=== PATIENT | female | born 1950 | race Asian ===

== ENCOUNTER → 2018-05-21 15:42 | Outpatient (CLI) | payer MEDICARE, SELFPAY ==
[2018-05-21 16:11] LABS: Add Manual Diff / Slide Review NO; Basophils Percent Auto 0.4 % (0-2); Eosinophils Percent Auto 5.3 % (2-4); Hemoglobin 14.7 g/dL (12.0-16.0); Lymphocytes Percent Auto 26.5 % (25-40); Mean Corpuscular HGB Conc 34.2 % (30-36); Mean Corpuscular Hemoglobin 31.6 PG (26-34); Mean Corpuscular Volume 92.3 fL (80-100); Monocytes Percent Auto 6.9 % (3-14); Neutrophils Absolute Auto 3300 /uL (3000-5900); Neutrophils Percent Auto 60.9 % (50-75); Platelet Count 248 X10^3/uL (150-400); Red Blood Cell Count 4.66 X10^6/uL (4.0-5.2); Red Cell Distribution Width 14.1 % (11.6-14.8); White Blood Cell Count 5.4 X10^3/uL (4.5-11.0)
[2018-05-21 17:43] LABS: Alanine Aminotransferase 28 IU/L (9-52); Albumin 4.7 g/dL (3.5-5.0); Albumin Globulin Ratio 1.4 (1.0-2.8); Alkaline Phosphatase 98 U/L (38-126); Aspartate Aminotransferase 37 IU/L (14-36); BUN Creatinine Ratio 31.4 (6-22); Bilirubin Total 0.5 mg/dL (0.2-1.3); Blood Urea Nitrogen 22 mg/dL (7-17); Calcium 9.8 mg/dL (8.4-10.2); Carbon Dioxide 28 mmol/L (22-32); Chloride 103 mmol/L (98-107); Estimated Glomerular Filt Rate > 60.0 mL/min (>60); Globulin 3.4 g/dL (1.7-4.1); Glucose 128 mg/dL (80-110); HEMOLYSIS 43 (0-50); Potassium 4.4 mmol/L (3.4-5.1); Sodium 144 mmol/L (137-145); Total Protein 8.1 g/dL (6.3-8.2)
--- NOTE | 2018-06-25 15:19 | ONC.NAV ---
Description: Survivorship Care Plan Summary Activity: Sent both pt and primary care provider copies.
== END ==
PROVIDERS: PCP Family Medicine
DX: C50.911 Malignant neoplasm of unspecified site of right female breast (principal)
CPT/HCPCS: 36415; 80053; 85025

== ENCOUNTER 2018-05-29 14:50 | Oncology outpatient (ONC) | payer MEDICARE, SELFPAY ==
[2018-05-29 15:19] VITALS: BP 137/85
--- NOTE | 2018-05-29 15:35 | ONC.PN ---
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 Bilateral mastectomy in December 2013 for a 2.9 cm primary tumor. She had 1 sentinel lymph node that was negative for metastatic disease. 2. Adjuvant chemotherapy with carboplatin and Taxol for 4 cycles followed by 4 cycles of Adriamycin and Cytoxan finishing in July 2014. 3. Adjuvant radiation. 4. Femara beginning in October 2014. Interval history: The patient is a 68-year-old woman who returns today for follow-up of a history of squamous cell cancer of the breast. She is feeling well today and has no specific complaints. She has been tolerating her hormonal therapy without too much difficulty. She has had some stiffness in her fingers occasionally. It does not seem to be interfering in her activities at all. She denies any hot flashes. She has not noted any changes on the chest wall or the axilla. She denies any new aches or pains. No fevers chills or sweats. No shortness of breath or cough. No GI complaints. The Femara as her only prescription medication. She does take some vitamins. Other than the breast cancer, she really has no significant past medical history. Social history: She does not smoke or drink alcohol. She is . Her family history is notable for an aunt with breast cancer. She also had a cousin with breast cancer. Home Medications and Allergies Home Medications Medication Instructions Recorded Confirmed Type CALCIUM CARBONATE (#CALCIUM) 600 mg PO QDAY #2 06/27/11 05/29/18 History cholecalciferol (vitamin D3) 1,000 iu PO QDAY #0 06/27/11 05/29/18 History [Vitamin D3] [CO-Q-10] 1 cap PO Q DAY #0 11/28/16 05/29/18 History letrozole [Femara] 2.5 mg PO QDAY #90 tab 07/10/17 05/29/18 Rx Allergies Allergy/AdvReac Type Severity Reaction Status Date / Time No Known Drug Allergies Allergy Verified 05/29/18 15:23 Exam Vital signs: Last Vital Signs BP 137/85 05/29/18 15:19 - Constitutional positive no acute distress, positive average body habitus - Routine HEENT Exam Head: Present: normocephalic, atraumatic Eye: Present: EOMI, PERRL. Absent: conjunctival icterus, scleral injection ENT: Present: mucous membranes moist, oropharynx clear - Routine Neck Exam Present: supple. Absent: lymphadenopathy, thyromegaly - Routine Chest/Breast/Axilla Exam Chest wall exam standard: Absent: tenderness, mass Breast: Present: right mastectomy, left mastectomy Axillae: Absent: lymphadenopathy - Routine Respiratory Exam Present: Clear to auscultation bilaterally. Absent: rales, wheezes - Routine Cardiovascular Exam Present: RRR, S1, S2. Absent: murmur - Routine Abdominal Exam Present: soft, normoactive bowel sounds. Absent: tenderness, organomegaly, mass - Routine Extremities Exam Absent: cyanosis, clubbing, edema - Routine Back/Spine Exam Back/Spine: Present: full ROM. Absent: paraspinal tenderness, vertebral tenderness - Routine Skin Exam Present: intact. Absent: petechiae, rash - Routine Neurological Exam Present: alert, oriented X3 - Routine Psychiatric Exam Present: normal affect, normal thought process Results - Imaging Additional studies: Procedures Bilateral simple mastectomy (12/30/13) Excision of axillary lymph node (12/30/13) Incision with removal of foreign body or device from skin and subcutaneous tissue (08/11/14) Insertion of totally implantable vascular access device [VAD] (12/30/13) Assessment and Plan (1) Squamous cell carcinoma of right breast Onset Date: 04/08/15 Problem details: 68-year-old woman with a history of a squamous cell carcinoma of the breast. She is now almost 4 and half years out from her diagnosis in about 3 and half years into her hormone treatment. She has no evidence of recurrence and is doing well. She will return to clinic in about 6 months for follow-up. She will be due for a DEXA scan at that time. Current visit: No Status: None
== END 2018-05-30 12:00 ==
PROVIDERS: PCP Family Medicine
DX: C50.911 Malignant neoplasm of unspecified site of right female breast (principal); Z17.0 Estrogen receptor positive status [ER+]; Z79.811 Long term (current) use of aromatase inhibitors; Z85.3 Personal history of malignant neoplasm of breast
CPT/HCPCS: 99215

== ENCOUNTER → 2018-12-02 08:42 | Outpatient (CLI) | payer MEDICARE, SELFPAY ==
[2018-12-02 09:58] LABS: Add Manual Diff / Slide Review NO; Basophils Absolute Auto 0 /uL (0-100); Basophils Percent Auto 1.1 % (0-2); Eosinophils Absolute Auto 100 /uL (0-450); Eosinophils Percent Auto 3.1 % (2-4); Hematocrit 43.2 % (36-46); Hemoglobin 14.4 g/dL (12.0-16.0); Lymphocytes Absolute Auto 1500 /uL (1100-4500); Lymphocytes Percent Auto 38.6 % (25-40); Mean Corpuscular HGB Conc 33.3 % (30-36); Mean Corpuscular Hemoglobin 30.3 PG (26-34); Mean Corpuscular Volume 90.9 fL (80-100); Monocytes Absolute Auto 400 /uL (0-900); Monocytes Percent Auto 9.6 % (3-14); Neutrophils Absolute Auto 1900 /uL (1500-7000); Neutrophils Percent Auto 47.6 % (50-75); Platelet Count 255 X10^3/uL (150-400); Red Blood Cell Count 4.75 X10^6/uL (4.0-5.2)
[2018-12-02 10:08] LABS: Alanine Aminotransferase 24 IU/L (9-52); Albumin 4.5 g/dL (3.5-5.0); Albumin Globulin Ratio 1.3 (1.0-2.8); Alkaline Phosphatase 78 U/L (38-126); Aspartate Aminotransferase 27 IU/L (14-36); BUN Creatinine Ratio 27.1 (6-22); Bilirubin Total 0.4 mg/dL (0.2-1.3); Blood Urea Nitrogen 19 mg/dL (7-17); Calcium 9.4 mg/dL (8.4-10.2); Carbon Dioxide 25 mmol/L (22-32); Chloride 104 mmol/L (98-107); Estimated Glomerular Filt Rate > 60.0 mL/min (>60); Globulin 3.6 g/dL (1.7-4.1); Glucose 100 mg/dL (80-110); HEMOLYSIS < 15 (0-50); Potassium 3.9 mmol/L (3.4-5.1); Sodium 140 mmol/L (137-145); Total Protein 8.1 g/dL (6.3-8.2)
== END ==
PROVIDERS: PCP Family Medicine; Visit Provider Specialist
DX: M85.851 Other specified disorders of bone density and structure, right thigh (principal); Z78.0 Asymptomatic menopausal state; C44.521 Squamous cell carcinoma of skin of breast; Z82.62 Family history of osteoporosis
CPT/HCPCS: 36415; 77080; 80053; 85025

== ENCOUNTER → 2020-12-09 13:42 | Outpatient (CLI) | payer MEDICARE, OTHER, SELFPAY | PROVIDERS: PCP Family Medicine; Referring Provider Internal Medicine Hematology & Oncology; Visit Provider Internal Medicine Hematology & Oncology | DX: M85.862 Other specified disorders of bone density and structure, left lower leg (principal); M85.861 Other specified disorders of bone density and structure, right lower leg; Z78.0 Asymptomatic menopausal state | CPT/HCPCS: 77080 ==

== ENCOUNTER → 2022-12-26 12:01 | Outpatient (CLI) | payer MEDICARE, OTHER, SELFPAY ==
--- NOTE | 2022-12-26 12:15 | DI.DEXA.S_ITS ---
C Bone Density Report Name: JOCE CARRILLO Age: 72 Sex: Female Ethnicity: Date of : 1950 Indication: osteopenia; Referring Provider: VIRAL BARNEY Study: Bone densitometry was performed. Exam Date: December 26, 2022 Accession number: [id number] Bone Density: Region BMD T-score Z-score Classification AP Spine(L1-L4) 0.903 -1.3 1.0 Osteopenia Femoral Neck (Left) 0.639 -1.9 0.1 Osteopenia Total Hip (Left) 0.736 -1.7 0.0 Osteopenia Femoral Neck (Right) 0.609 -2.2 -0.2 Osteopenia Total Hip (Right) 0.724 -1.8 -0.1 Osteopenia Total Hip Mean 0.730 -1.8 -0.1 Osteopenia Total Forearm (Left) 0.506 -1.4 0.9 Osteopenia 1/3 Forearm (Left) 0.563 -2.2 0.1 Osteopenia UD Forearm (Left) 0.405 -0.7 1.0 Normal World Health Organization criteria for BMD impression classify patients as: Normal (T-score at or above -1.0), Osteopenia (T-score between -1.0 and -2.5), or Osteoporosis (T-score at or below -2.5). 10-year Fracture Risk(1): Major Osteoporotic Fracture 7.5% Hip Fracture 1.8% Reported Risk Factors: [place] (), Neck BMD=0.609, BMI=23.8 (1) FRAX(R) Version 3.08. Fracture probability calculated for an untreated patient. Fracture probability may be lower if the patient has received treatment. Previous Exams: -- Region Exam Age BMD T-score BMD Change BMD Change Date g/cm2 vs Baseline vs Previous -- AP Spine (L1-L4) 12/26/2022 72 0.903 -1.3 -0.088 (-8.9%)# -0.088 (-8.9%)# 12/09/2020 70 0.991 -0.5 Total Hip(Left) 12/26/2022 72 0.736 -1.7 -0.030 (-3.9%)# -0.030 (-3.9%)# 12/09/2020 70 0.766 -1.4 Total Hip(Right) 12/26/2022 72 0.724 -1.8 -0.023 (-3.1%)# -0.023 (-3.1%)# 12/09/2020 70 0.746 -1.6 -- *Denotes significance at 95% confidence level, LSC for AP Spine = 0.022 g/cm2, LSC for Total Hip = 0.027 g/cm2 # Denotes dissimilar scan types or analysis methods Impression: The patient has low bone mass, based on the Right Femoral Neck T-score. The patient has an estimated ten-year risk of hip fracture of 1.8% and an estimated ten-year risk of major fracture of 7.5%, based on the WHO FRAX algorithm. No significant bone loss was observed. Discussion: BONE DENSITY IS LOW AT ONE OR MORE SKELETAL SITES. This patient's lowest T-score is low at one or more skeletal sites. It meets the World Health Organization's (WHO) criteria for ?low bone mass? (T-score between -1.0 and -2.5). The patient's 10-year risk of fracture as calculated by FRAX is less than the threshold where pharmacological therapy is recommended by the National Osteoporosis Foundation (NOF). However, all treatment decisions require clinical judgment and consideration of individual patient factors, including patient preferences, comorbidities, previous drug use, risk factors not captured in the FRAX model (e.g., frailty, falls, vitamin D deficiency, increased bone turnover, interval significant decline in bone density) and possible under or overestimation of fracture risk by FRAX. The patient should follow a healthful lifestyle (good nutrition with adequate calcium and vitamin D, and appropriate weight-bearing exercise). Follow-Up: Consider repeating this study in 2 to 3 years to reassess this patient's status, or sooner if there is some new clinical indication. Reported by: JOSE G VELAZQUEZ M.D. on 12/26/2022 12:28:00 PM.
== END ==
PROVIDERS: PCP Family Medicine; Referring Provider Internal Medicine Hematology & Oncology; Visit Provider Internal Medicine Hematology & Oncology
DX: C44.521 Squamous cell carcinoma of skin of breast (principal); M85.851 Other specified disorders of bone density and structure, right thigh; Z78.0 Asymptomatic menopausal state
CPT/HCPCS: 77080; 77081

== ENCOUNTER → 2025-01-07 09:50 | Outpatient (CLI) | payer MEDICARE, OTHER, SELFPAY ==
--- NOTE | 2025-01-07 09:56 | DI.RAD.S_ITS ---
PROCEDURE: XR DEXA AXIAL SKELETON INDICATIONS: ROUTINE COMPARISON: [facility], CR, XR DEXA AXIAL SKELETON, 12/26/2022, 12:15. [facility], CR, XR DEXA AXIAL SKELETON, 12/09/2020, 13:58. FINDINGS: Lumbar Spine: Bone mineral density 0.901 g/cm2, T score -1.3. Prior DEXA was performed using dissimilar scan type or analysis method. Left Femoral Neck: Bone mineral density 0.614 g/cm2, T score -2.1. Left Hip: Bone mineral density 0.725 g/cm2, T score -1.8. Prior DEXA was performed using dissimilar scan type or analysis method. Right Femoral Neck: Bone mineral density 0.609 g/cm2, T score -2.2 Right Hip: Bone mineral density is 0.744 g/cm2, T score -1.6. Prior DEXA was performed using dissimilar scan type or analysis method. Left Forearm: Bone mineral density 0.536 g/cm2, T score -2.6. Since the most recent prior study, there has been a statistically significant decrease in bone mineral density by 4.9 %. Fracture Risk Calculation (when applicable): 10-year fracture risk of a major osteoporotic fracture 7.8% and of a hip fracture 2.1%. (T score greater or equal to -1.0 to: NORMAL) (T score from -1.1 to -2.4: OSTEOPENIA) (T score less than or equal to -2.5: OSTEOPOROSIS) IMPRESSION: By WHO criteria, patient has osteopenia. Follow-up guidelines as follows: Osteoporosis: Consider a repeat DEXA and Vertebral Fracture Assessment (VFA) exam in 2 years or sooner if medically necessary, to reassess this patient's status. Osteopenia: Consider a repeat DEXA in 2-3 years to reassess this patient's status, or if there is a new clinical indication. Normal: Consider a repeat DEXA in 5 years or sooner, or if there is a new clinical indication. All treatment decisions require clinical judgment and consideration of individual patient factors, including patient preferences, comorbidities, previous drug use, risk factors not captured in the FRAX model (e.g., frailty, falls, vitamin D deficiency, increased bone turnover, interval significant decline in bone density ) and possible under- or over-estimation of fracture risk by FRAX. In addition, the NOF Guide recommends that FDA-approved medical therapies be considered in postmenopausal women and men age >= 50 years with a: * Hip or vertebral (clinical or morphometric) fracture * T-score of <=-2.5 at the spine or hip * Ten-year fracture probability by FRAX of >= 3% for hip fracture or >=20% for major osteoporotic fracture. Approved by: Bart Hernandez M.D. on 01/07/2025 at 22:29
== END ==
LOC: RAD 09:55
PROVIDERS: PCP Family Medicine; Referring Provider Internal Medicine Hematology & Oncology; Visit Provider Internal Medicine Hematology & Oncology
DX: M85.89 Other specified disorders of bone density and structure, multiple sites; Z79.811 Long term (current) use of aromatase inhibitors
CPT/HCPCS: 77080